=== PATIENT | female | born 1965 | race Two or more races ===

== ENCOUNTER → 2016-12-04 | Outpatient (CLI) | payer BC ==
--- NOTE | ~2016-12-04 | MY11 ---
[facility] A Service of [facility] RADIOLOGY TEXT RESULTS PATIENT: LING KEYES LOCATION: [facility] : 65 UNIT #: [id number] AGE: [address]: Mack Zuniga MD SEX: F ORDER DR: [id number] [place], [place] [address] [id number] MR#: [id number] Acc #: [id number] NAME: LING KEYES : 1965 SEX: F STUDY DATE/TIME: 12/04/2016 15:11 UNIT: [facility] ROOM: STUDY DESCRIPTION: MY Mammogram Screening Dig [place] Attending Physician: Mack Zuniga M.D. Ordering Physician: Mack Zuniga M.D. Primary Care Physician: Mack Zuniga M.D. MEDICAL IMAGING REPORT This report is preliminary unless electronic signature is present EXAM Bilateral digital screening mammogram with CAD, 12/04/2016 INDICATIONS 51-year-old female for routine screening. No reported problems and no personal or family history of breast cancer. No surgeries. TECHNIQUE CC and MLO views of breast were obtained and reviewed with a FDA-approved CAD device. COMPARISON 05/31/2015. FINDINGS Breast parenchyma is composed of scattered fibroglandular densities and unchanged. There is no new dominant nodule, mass or suspicious clustered microcalcifications. Benign calcification in the left breast. Asymmetric pattern of fibroglandular tissue in the lower hemisphere left breast is stable. IMPRESSION 1. Benign screening mammogram, 1 year followup recommended. BIRADS: 2 Benign Finding. Patients over the age of 40 are entered into a reminder system with target due date for the next mammogram. A result letter will also be sent to the patient. [facility] A Service of [facility] RADIOLOGY TEXT RESULTS PATIENT: LING KEYES LOCATION: [facility] : 65 UNIT #: [id number] AGE: [address]: Mack Zuniga MD SEX: F ORDER DR: Dictated by... Heri Anders M.D. THIS IS AN ELECTRONICALLY VERIFIED REPORT Heri Anders M.D. at 12/05/2016 11:19 AM COCO/gretchen TD: 12/04/2016 22:13 JOB #: [id number] MEDICAL IMAGING REPORT COPY
== END | disposition home or self-care (01) ==
LOC: CWCC 14:50
DX: Z12.31 Encounter for screening mammogram for malignant neoplasm of breast (principal)
CPT/HCPCS: G0202